=== PATIENT | female | born 1980 | race Caucasian/White ===

== ENCOUNTER → 2020-11-03 | Outpatient (CLI) | payer OTHER ==
[~2020-11-03] MED LIST: ASMANEX110 MCG INH; BENTYL 10MG CAP10 MG PO; CALCIUM CITRAT1 EAC4 PO; COREG6.25 MG PO; DAILY FIBER PO; DITROPAN 5 MG TA5 MG PO; FEXOFENADINE H180 MG PO; FISH OIL 1,2001 EAC1 PO; FLONASE 0.05% N16 GM; HYDROXYZINE HCL25 MG PO; NYSTATIN TOP; PROBIOTIC1 EAC3 PO; PROTONIX40 MG PO; STOOL SOFTENER100 MG PO; TRAZODONE HCL100 MG PO; TYLENOL ARTHRITIS PO; VENTOLIN HFA 66.7 GM INH; VITAMIN C1000 MG PO
== END ==
LOC: EXRD 13:38
DX: N28.9 Disorder of kidney and ureter, unspecified (principal)
CPT/HCPCS: 76775

== ENCOUNTER 2021-11-27 12:44 | Emergency (ER) | payer OTHER | END 2021-11-27 13:53 | disposition home or self-care (01) | LOC: ER1 12:44 | DX: T16.2XXA Foreign body in left ear, initial encounter (principal); W45.8XXA Other foreign body or object entering through skin, initial encounter | CPT/HCPCS: 69200; 99282 ==